=== PATIENT | male | born 1940 | race Two or more races ===

== ENCOUNTER 2024-01-15 13:04 | Inpatient (IN) | payer MEDICARE, OTHER ==
[~2024-01-15] VITALS: Ht 162.6 cm; Wt 69.5 kg
[2024-01-15] MEDS: SODIUM CHLORIDE 0.9% 1000ML BAG (SEPSIS BOLUS) IV ONE (13:45)
[2024-01-15] MEDS ORDERED: SODIUM CHLORIDE 0.9% 1,000 ML IV ONE (13:45)
[2024-01-15 14:13] LABS: HEMATOCRIT. 34.3 % (42.0-52.0); HEMOGLOBIN. 11.4 g/dL (14.0-18.0); MEAN CORPUSCULAR HEMOGLOBIN 31.2 pg (28.0-32.0); MEAN CORPUSCULAR HGB CONC 33.3 g/dL (31.0-37.0); MEAN CORPUSCULAR VOLUME 93.5 fL (80.0-94.0); PLATELET 170 x1000/uL (130-400); RED BLOOD CELL COUNT 3.67 mill/uL (4.7-6.1); RED CELL DISTRIBUTION WIDTH 14.4 % (11.6-14.6); WHITE BLOOD COUNT 7.9 x1000/uL (4.5-11.0)
[2024-01-15 14:19] LABS: DIFFERENTIAL COMMENT 1; INR 1.1; PROTHROMBIN TIME 11.9 sec (9.6-11.0)
[2024-01-15 14:23] LABS: ALANINE AMINOTRANSFERASE 16 IU/L (10-49); ALBUMIN 3.5 g/dL (3.2-4.8); ASPARTATE AMINOTRANSFERASE 18 IU/L (<34); BILIRUBIN TOTAL 0.7 mg/dL (0.1-1.0); CARBON DIOXIDE 26 mEq/L (21-32); CHLORIDE 107 mEq/L (98-107); CREATININE 0.8 mg/dL (0.6-1.3); GLUCOSE 111 mg/dL (70-105); POTASSIUM 4.1 mEq/L (3.5-5.1); PROTEIN TOTAL 5.8 g/dL (6.0-8.3); SODIUM 137 mEq/L (136-145); TROPONIN I HIGH SENSITIVITY 9 ng/L (3.0-53); UREA NITROGEN BLOOD 15 mg/dL (9-23)
[2024-01-15] MEDS ORDERED: IPRATROPIUM/ALBUTEROL 0.5-3(2.5)MG/3ML NEB HHN PRN (16:30)
[2024-01-15] MEDS ORDERED: ACETAMINOPHEN 325MG TABLET PO PRN (16:30)
[2024-01-15] MEDS ORDERED: DOCUSATE SODIUM 100MG CAPSULE PO PRN (16:30)
[2024-01-15] MEDS ORDERED: ONDANSETRON HCL 4MG/2ML INJ IV PRN (16:30)
[2024-01-15 17:01] LABS: PARTIAL THROMBOPLASTIN TIME 29.4 sec (23.4-31.0); PROTHROMBIN TIME 11.4 sec (9.6-11.0); TROPONIN I HIGH SENSITIVITY 9 ng/L (3.0-53)
[2024-01-15 17:09] LABS: PLATELET ESTIMATE NORMAL
[2024-01-15] MEDS: DEXT 5%/0.45% NACL 1000ML 1,000 ML IV SCH (17:29)
[2024-01-15] MEDS: ENOXAPARIN 40MG/0.4ML SYR SUBCUT SCH (17:50)
[2024-01-15 18:48] LABS: CLARITY URINE CLEAR (CLEAR); COLOR URINE YELLOW (YELLOW); GLUCOSE URINE NEGATIVE (NEGATIVE); KETONES URINE NEGATIVE (NEGATIVE); LEUKOCYTE ESTERASE URINE NEGATIVE (NEGATIVE); NITRITE URINE NEGATIVE (NEGATIVE); OCCULT BLOOD URINE NEGATIVE (NEGATIVE); PROTEIN URINE TRACE (NEGATIVE); SPECIFIC GRAVITY URINE 1.014 (1.005-1.030); UROBILINOGEN URINE 0.2 E.U./dL (0.2-1.0)
[2024-01-15 18:58] LABS: *AMPHETAMINES SCREEN URINE NEGATIVE (NEGATIVE); *BARBITURATES SCREEN URINE NEGATIVE (NEGATIVE); *BENZODIAZEPINES SCREEN URINE NEGATIVE (NEGATIVE); *COCAINE SCREEN URINE NEGATIVE (NEGATIVE); CANNABINOID URINE SCREEN NEGATIVE (NEGATIVE); ECSTASY MDMA SCREEN URINE NEGATIVE (NEGATIVE); METHADONE URINE SCREEN Neg (NEGATIVE); OPIATES URINE SCREEN NEGATIVE (NEGATIVE); PHENCYCLIDINE URINE SCREEN NEGATIVE (NEGATIVE)
[2024-01-15 19:09] LABS: BACTERIA URINE NONE SEEN; RBC URINE NONE SEEN /hpf (0-2); SQUAMOUS EPITHELIAL CELL URINE NONE SEEN /lpf (RARE/1+); WBC URINE NONE SEEN /hpf (0-2)
[2024-01-15 21:52] VITALS: BP 163/83; PULSE 62; RESP 17; TEMP 97.5
[2024-01-15 22:29] VITALS: BP 163/83; PULSE 62; RESP 17; TEMP 97.5
[2024-01-16] VITALS: BP 159/77; PULSE 59; RESP 18; TEMP 97.8
[2024-01-16 00:02] LABS: CREATINE KINASE MB FRACTION 1.1 ng/mL (0.5-3.6)
[2024-01-16] MEDS: TRAZODONE HCL 50MG TABLET PO PRN (00:41)
[2024-01-16] MEDS ORDERED: ATOR-2 PO (02:28)
[2024-01-16] MEDS ORDERED: APIX5TAB PO (02:28)
[2024-01-16] MEDS ORDERED: METO-385 PO (02:28)
[2024-01-16] MEDS ORDERED: AMLO5TAB88 PO (02:28)
[2024-01-16] MEDS ORDERED: PANT40TA51 PO (02:28)
[2024-01-16] MEDS ORDERED: FINA5TAB11 PO (02:28)
[2024-01-16] MEDS ORDERED: ISOS30TA91 PO (02:28)
[2024-01-16] MEDS ORDERED: ASPI-1497 PO (02:28)
[2024-01-16] MEDS ORDERED: HYDR100T26 PO (02:28)
[2024-01-16] MEDS ORDERED: LISI40TA13 PO (02:28)
[2024-01-16] MEDS ORDERED: TAMS-11 PO (02:28)
[2024-01-16 04:00] VITALS: BP 119/80; PULSE 60; RESP 17; TEMP 97.5
[2024-01-16 08:00] VITALS: BP 167/76; PULSE 65; RESP 16; TEMP 96.8
[2024-01-16 08:50] LABS: HEPATITIS B SURFACE ANTIGEN NEGATIVE (Negative); HEPATITIS C AB NON REACTIVE (Neg) (Negative)
[2024-01-16 12:00] VITALS: BP 147/69; PULSE 60; RESP 16; TEMP 97
[2024-01-16 16:00] VITALS: BP 180/81; PULSE 60; RESP 16; TEMP 96.8
[2024-01-16] MEDS: CLONIDINE 0.1MG TABLET PO PRN (18:47)
[2024-01-16 20:32] VITALS: BP 152/78; PULSE 60; TEMP 97.9; O2SAT 97
== END 2024-01-16 21:15 | disposition home or self-care (01) | DRG 918 ==
LOC: ER 13:04 → 8WST 15:25 → EDBEDREQ 15:27
PROVIDERS: ADMIT Internal Medicine; ATTEND Internal Medicine
DX: T50.991A Poisoning by other drugs, medicaments and biological substances, accidental (unintentional), initial encounter (principal); I25.10 Atherosclerotic heart disease of native coronary artery without angina pectoris; I10 Essential (primary) hypertension; E78.00 Pure hypercholesterolemia, unspecified; Z95.0 Presence of cardiac pacemaker; Z79.899 Other long term (current) drug therapy; Y92.89 Other specified places as the place of occurrence of the external cause
CPT/HCPCS: 36415; 71045; 80053; 80305; 81003; 82550; 82553; 83605; 83880; 84145; 84484; 85025; 86705; 87340; 93005; 93306; 97162; 99291; J1650; J7030